=== PATIENT | male | born 1950 | race Caucasian/White ===

== ENCOUNTER 2018-04-04 10:31 | Outpatient (CLI) | payer OTHER | END 2018-04-04 10:43 | disposition home or self-care (01) | LOC: LAB 10:31 | DX: R31.0 Gross hematuria (principal); R97.20 Elevated prostate specific antigen [PSA] ==

== ENCOUNTER 2018-04-06 20:12 | Emergency (ER) | payer OTHER ==
[~2018-04-06] VITALS: Ht 175.3 cm; Wt 89.4 kg
[2018-04-06] MEDS ORDERED: TARKA ER 2-2401 EACH (20:19)
[2018-04-06] MEDS ORDERED: TRAM1TAB98 (20:20)
[2018-04-06] MEDS ORDERED: CIPROFLOXA500 MG/5 M (20:20)
== END 2018-04-06 23:40 | disposition home or self-care (01) ==
LOC: ER 20:12
DX: R31.0 Gross hematuria (principal); T83.098A Other mechanical complication of other urinary catheter, initial encounter

== ENCOUNTER 2019-05-21 01:36 | Emergency (ER) | payer OTHER ==
[~2019-05-21] VITALS: Ht 167.6 cm; Wt 90.7 kg
[~2019-05-21 01:36] MED LIST: CIPROFLOXA500 MG/5 M; TARKA ER 2-2401 EACH; TRAM1TAB98
[2019-05-21] MEDS ORDERED: CRESTOR5 MG (01:51)
[2019-05-21] MEDS ORDERED: DILTIAZEM 24HR240 MG (01:51)
[2019-05-21] MEDS ORDERED: ZESTRIL20 MG (01:51)
[2019-05-21] MEDS ORDERED: PREVACID30 MG (01:52)
[2019-05-21] MEDS ORDERED: CARDURA8 MG (01:52)
[2019-05-21] MEDS ORDERED: PEPCID AC20 MG PO (14:30)
[2019-05-21] MEDS ORDERED: DULCOLAX5 MG PO (14:30)
== END 2019-05-21 14:43 | disposition home or self-care (01) ==
LOC: ER 01:36
DX: K59.09 Other constipation (principal); K29.60 Other gastritis without bleeding; R14.0 Abdominal distension (gaseous)

== ENCOUNTER 2019-10-09 07:49 | Emergency (ER) | payer OTHER ==
[~2019-10-09] VITALS: Ht 167.6 cm; Wt 84.8 kg
[~2019-10-09 07:49] MED LIST changes: +CARDURA8 MG; +CRESTOR5 MG; +DILTIAZEM 24HR240 MG; +DULCOLAX5 MG PO; +PEPCID AC20 MG PO; +PREVACID30 MG; +ZESTRIL20 MG
== END 2019-10-09 16:46 | disposition home or self-care (01) ==
LOC: ER 07:49
DX: R10.13 Epigastric pain (principal)

== ENCOUNTER 2020-12-09 08:00 | Outpatient (CLI) | payer OTHER | END 2020-12-09 08:30 | disposition home or self-care (01) | LOC: PPH VACUNA 08:00 | DX: Z23 Encounter for immunization (principal) ==

== ENCOUNTER 2021-09-28 11:30 | Outpatient (CLI) | payer OTHER | END 2021-09-28 11:40 | disposition home or self-care (01) | LOC: PPH VACUNA 11:30 | PROVIDERS: ATTEND Emergency Medicine Pediatric Emergency Medicine | DX: Z23 Encounter for immunization (principal) ==